=== PATIENT | female | born 1950 | race Caucasian/White ===

== ENCOUNTER 2018-07-01 10:10 | Outpatient (CLI) | payer MEDICARE ==
--- NOTE | 2018-07-01 10:49 | RAD ---
TWO VIEWS CHEST: DATE: 07/01/2018. PROVIDED CLINICAL HISTORY: Bronchitis. FINDINGS: Cardiac and mediastinal silhouette is within normal limits. The lungs appear clear. No pleural flui d or pneumothorax apparent. IMPRESSION: No evidence for an acute cardiopulmonary process. POS: C
== END 2018-07-01 10:11 | disposition home or self-care (01) ==
LOC: RAD-FRANK 10:10
PROVIDERS: ATTEND Nurse Practitioner Family
DX: J20.9 Acute bronchitis, unspecified (principal)
CPT/HCPCS: 71046